=== PATIENT | female | born 1970 | race Two or more races ===

== ENCOUNTER 2021-02-19 07:15 | Inpatient (IN) | payer OTHER ==
[~2021-02-19] VITALS: Ht 172.7 cm; Wt 74.8 kg
[2021-02-19] MEDS ORDERED: CLARITIN10 M1 PO (08:46)
[2021-02-19] MEDS ORDERED: RELAFEN PO (08:47)
[2021-02-26] MEDS ORDERED: NAPROXEN500 MG (14:51)
[2021-03-01] MEDS ORDERED: CODE1TAB37 PO (07:43)
[2021-03-01] MEDS ORDERED: IBUPROFEN600 MG PO (07:44)
== END 2021-03-01 09:16 | disposition home or self-care (01) | DRG 743 ==
LOC: OB/GYN 02-26 07:15 → SURG 02-26 11:11 → OB/GYN 02-26 11:11 → O/R 02-26 11:11 → OB/GYN 02-26 15:24 → SURG 02-26 18:32
PROVIDERS: ADMIT Obstetrics & Gynecology; ATTEND Obstetrics & Gynecology
PROC: 0UT70ZZ Resection of Bilateral Fallopian Tubes, Open Approach (ICD-10-PCS; 2021-02-26)
PROC: 0UT20ZZ Resection of Bilateral Ovaries, Open Approach (ICD-10-PCS; 2021-02-26)
PROC: 0TJB8ZZ Inspection of Bladder, Via Natural or Artificial Opening Endoscopic (ICD-10-PCS; 2021-02-26)
PROC: 0UT90ZZ Resection of Uterus, Open Approach (ICD-10-PCS; principal; 2021-02-26 10:15)
DX: D25.1 Intramural leiomyoma of uterus (principal); D25.2 Subserosal leiomyoma of uterus; N80.0 Endometriosis of uterus; N95.0 Postmenopausal bleeding; N83.12 Corpus luteum cyst of left ovary; N83.292 Other ovarian cyst, left side; N83.291 Other ovarian cyst, right side; Z20.822 Contact with and (suspected) exposure to COVID-19; N83.8 Other noninflammatory disorders of ovary, fallopian tube and broad ligament